=== PATIENT | female | born 1965 | race Caucasian/White ===

== ENCOUNTER 2023-09-08 04:06 | Day surgery (SDC) | payer OTHER ==
[2023-09-07 15:50] VITALS: BMI 25.8
[2023-09-08] MEDS ORDERED: BUPIVACAINE HCL/PF 0.75% 10 ML VIAL ONE ×2 (07:31→11:10)
[2023-09-08] MEDS ORDERED: LIDOCAINE HCL/PF 1% SDV 5ML VIAL ONE (07:31)
[2023-09-08] MEDS: LIDOCAINE HCL 1% PRESERVATIVE FREE - 30ML VIAL IJ ONE ×2 (11:35)
[2023-09-08] MEDS: BUPIVACAINE HCL/PF 0.75% 10 ML VIAL NR ONE ×2 (11:36)
[2023-09-08 11:58] VITALS: PULSE 62; RESP 20
[2023-09-08 13:01] VITALS: BP 130/70; TEMP 97
[2023-09-08] MEDS ORDERED: ACETAMINOPHEN 500 MG TABLET (FP) PO PRN (14:08)
== END 2023-09-08 13:02 | disposition home or self-care (01) ==
LOC: JASU-SURG 04:06
PROVIDERS: ATTEND Pain Medicine Pain Medicine
PROC: 3E0T33Z Introduction of Anti-inflammatory into Peripheral Nerves and Plexi, Percutaneous Approach (ICD-10-PCS; 2023-09-08)
PROC: 3E0T3BZ Introduction of Anesthetic Agent into Peripheral Nerves and Plexi, Percutaneous Approach (ICD-10-PCS; principal; 2023-09-08 11:30)
DX: M47.816 Spondylosis without myelopathy or radiculopathy, lumbar region (principal)
CPT/HCPCS: 76000-TC-FY

== ENCOUNTER 2023-10-08 04:05 | Day surgery (SDC) | payer OTHER ==
[2023-10-02 16:19] VITALS: BMI 25.8
[2023-10-08] MEDS ORDERED: LIDOCAINE HCL/PF 1% SDV 5ML VIAL ONE (07:25)
[2023-10-08] MEDS ORDERED: BUPIVACAINE HCL/PF 0.75% 10 ML VIAL ONE (07:25)
[2023-10-08 11:22] VITALS: RESP 16
[2023-10-08] MEDS: BUPIVACAINE HCL/PF 0.75% 10 ML VIAL NR ONE ×2 (12:47)
[2023-10-08] MEDS: LIDOCAINE HCL 1% PRESERVATIVE FREE - 30ML VIAL IJ ONE ×2 (12:48)
[2023-10-08 14:00] VITALS: BP 109/54; PULSE 53; TEMP 96.4
[2023-10-08] MEDS ORDERED: ACETAMINOPHEN 500 MG TABLET (FP) PO PRN (16:38)
== END 2023-10-08 13:45 | disposition home or self-care (01) ==
LOC: JASU-SURG 04:05
PROVIDERS: ATTEND Pain Medicine Pain Medicine
PROC: 3E0T33Z Introduction of Anti-inflammatory into Peripheral Nerves and Plexi, Percutaneous Approach (ICD-10-PCS; 2023-10-08)
PROC: 3E0T3BZ Introduction of Anesthetic Agent into Peripheral Nerves and Plexi, Percutaneous Approach (ICD-10-PCS; principal; 2023-10-08 10:45)
DX: M47.816 Spondylosis without myelopathy or radiculopathy, lumbar region (principal)
CPT/HCPCS: 76000-TC-FY

== ENCOUNTER 2023-11-06 04:14 | Day surgery (SDC) | payer OTHER ==
[2023-11-02 16:19] VITALS: BMI 25.8
[2023-11-06] MEDS ORDERED: LIDOCAINE HCL/PF 1% SDV 5ML VIAL ONE (07:27)
[2023-11-06] MEDS ORDERED: LIDOCAINE HCL/PF 2% SDV 5ML VIAL ONE (07:47)
[2023-11-06] MEDS ORDERED: DEXAMETHASONE SOD PHOSPHATE 10 MG/1 ML VIAL ONE (07:47)
[2023-11-06] MEDS ORDERED: ACETAMINOPHEN 500 MG TABLET (FP) PO PRN (10:47)
[2023-11-06] MEDS ORDERED: BUPIVACAINE HCL/PF 0.75% 10 ML VIAL ONE (12:10)
[2023-11-06] MEDS: BUPIVACAINE HCL/PF 0.75% 10 ML VIAL NR ONE ×2 (12:29)
[2023-11-06] MEDS: LIDOCAINE HCL/PF 2% SDV 5ML VIAL INF ONE ×2 (12:29)
[2023-11-06] MEDS: LIDOCAINE 1% P/F 10 MG/ML VIAL INF ONE ×2 (12:29)
[2023-11-06] MEDS: DEXAMETHASONE SOD PHOSPHATE 10 MG/1 ML VIAL IVPUSH ONE ×2 (12:29)
[2023-11-06 12:56] VITALS: RESP 18
[2023-11-06 13:35] VITALS: BP 118/75; PULSE 78; TEMP 98.2
== END 2023-11-06 13:35 | disposition home or self-care (01) ==
LOC: JASU-SURG 04:14
PROVIDERS: ATTEND Pain Medicine Pain Medicine
PROC: 015B3ZZ Destruction of Lumbar Nerve, Percutaneous Approach (ICD-10-PCS; principal; 2023-11-06 12:28)
DX: M47.816 Spondylosis without myelopathy or radiculopathy, lumbar region (principal)
CPT/HCPCS: 76000-TC-FY; J1100

== ENCOUNTER 2023-12-18 04:26 | Day surgery (SDC) | payer OTHER ==
[2023-12-16 13:09] VITALS: BMI 25.8
[2023-12-18] MEDS ORDERED: BUPIVACAINE HCL/PF 0.75% 10 ML VIAL ONE (07:18)
[2023-12-18] MEDS ORDERED: LIDOCAINE HCL/PF 1% SDV 5ML VIAL ONE (07:18)
[2023-12-18] MEDS ORDERED: LIDOCAINE HCL/PF 2% SDV 5ML VIAL ONE (09:28)
[2023-12-18 10:28] VITALS: BP 106/46; PULSE 52; RESP 16; TEMP 99
== END 2023-12-18 10:47 | disposition home or self-care (01) ==
LOC: JASU-SURG 04:26
PROVIDERS: ATTEND Pain Medicine Pain Medicine
PROC: 015B3ZZ Destruction of Lumbar Nerve, Percutaneous Approach (ICD-10-PCS; principal; 2023-12-18 09:39)
DX: M47.816 Spondylosis without myelopathy or radiculopathy, lumbar region (principal)
CPT/HCPCS: 76000-TC-FY

== ENCOUNTER 2024-06-10 05:18 | Day surgery (SDC) | payer OTHER ==
[2024-06-09 08:29] VITALS: BMI 26.6
[2024-06-10] MEDS ORDERED: LIDOCAINE HCL 1%, 10 MG/ML (20ML VIAL) ONE (07:10)
[2024-06-10] MEDS ORDERED: LIDOCAINE HCL/PF 2% SDV 5ML VIAL ONE (07:23)
[2024-06-10] MEDS ORDERED: LIDOCAINE HCL/PF 1% SDV 5ML VIAL ONE (07:23)
[2024-06-10] MEDS: ceFAZolin SODIUM 1 GM VIAL IVPB ONE (08:05)
[2024-06-10] MEDS: LIDOCAINE HCL 1% PRESERVATIVE FREE - 30ML VIAL IJ ONE ×2 (08:16)
[2024-06-10] MEDS: LIDOCAINE HCL/PF 2% SDV 5ML VIAL INF ONE ×3 (08:16)
[2024-06-10] MEDS ORDERED: ACETAMINOPHEN 500 MG TABLET (FP) PO PRN (08:31)
[2024-06-10 10:34] VITALS: RESP 20
[2024-06-10 11:31] VITALS: BP 125/74; TEMP 97.3
[2024-06-10 13:19] VITALS: PULSE 56
== END 2024-06-10 12:20 | disposition home or self-care (01) ==
LOC: JASU-SURG 05:18
PROVIDERS: ATTEND Pain Medicine Pain Medicine
PROC: 0Q5 Lower Bones, Destruction (ICD-10-PCS; 2024-06-10)
PROC: 0Q503ZZ Destruction of Lumbar Vertebra, Percutaneous Approach (ICD-10-PCS; principal; 2024-06-10 08:00)
DX: M54.51 Vertebrogenic low back pain (principal)
CPT/HCPCS: 76000-TC-FY